=== PATIENT | male | born 1940 | race Caucasian/White ===

== ENCOUNTER 2021-09-27 10:21 | Emergency (ER) | payer OTHER ==
--- OUTSIDE RECORDS SUMMARY | 2021-09-27 10:24 | XMS REPORT | Continuity of Care Document ---
:[address] [facility] t Address [address] [place] [place] [address] Care Team Providers Name Role Phone Arturo Leyva Attending Clinician Unavailable Yuly Leyva Admitting Clinician Unavailable Payers Payer Name Policy Type Policy Number Effective Date Expiration Date S ource Problems This patient has no known problems. Allergies, Adverse Reactions, Alerts Allergy Allergy Status Severity Reaction(s) Onset Inactive Treating Comm ents Source Name Type Date Date Clinician No Known DA Active U [facility] Allergie 09-30 [facility] 00:00: [address] Medications This patient has no known medications. Procedures This patient has no known procedures. Encounters Start End Encounter Admission Attending Care Care Encounter Source Date/Time Date/Time Type Type Clinicians Facility Department ID 2021-06-20 Inpatient [facility] NICKO [id number] [facility] 17:52:00 [facility]5 [facility] 2021-06-21 2021-07-12 [facility] EM Aut[facility] [id number] [facility] 03:01:00 18:41:00 Arturo 88 [facility] 2021-06-21 2021-07-12 Inpatient EM Autumn [facility] [id number] [facility] 03:01:00 18:41:00 Arturo [facility]6 [facility] Results Test Description Test Time Test Comments Results Result Comments Source COVID 19 Asymptomatic [facility] 2021-07-12 15:39:00 Test Item Value Reference Range Interpretation Comme nts COVID 19 Asymptomatic IH AG NEGATIVE Negative "Negative results from patients (test code = COVNONPUIAG) wi th symptom onset beyondfive days, should be lul bettie as presumptive, andconfirmation with a molecular assay, if neces phani forpatient management may be performed. Negative result s do notrule out COVID-19 and sh ould not be used as the sole basisf or treatment or patient managem ent decisions, includinginfect ion control decisions. Nega tive results should beconsidered in the context of a patients recent exposures,history, and the presenc e of clinical signs and symptomscon sistent with COVID-19.This t est detects both viable andnon-v iable SARS-CoV and SARS CoV-2.Test performance dependson the a mount of virus (antigen) in th e sample." COVID 19 Asymptomatic IH [id number] 18:46:00 Test Item Value Reference Range Interpretation Comments COVID 19 NEGATIVE Negative "Negative resul ts from Asymptomatic IH AG patients with symptom (test code = onset beyondfiv e days, COVNONPUIAG) should be lul bettie as presumptive, andconfirmation with a molecular assay , if necessary forpa tient management may be performed. Nega tive results do notr ule out COVID-19 and sh ould not be used as the sole basisfor treatm ent or patient managem ent decisions, includinginfect ion control decisio ns. Negative result s should beconsidered in the context of a pa tients recent exposure s,history, and the presenc e of clinical signs and symptomsconsist ent with COVID-19.This t est detects both vi able andnon-viable S ARS-CoV and SARS CoV-2. Test performance dep endson the amount of virus (antigen) in the sample." *SPECIMEN SWAB NOT ACCEPTABLE, SPOKE TO ANGEL BOWERS*BASIC METABOLIC [id number] 06:17:00 Test Item Value Reference Range Interpretation Comments SODIUM (test code = 136 MMOL/L 137-145 L NA) POTASSIUM (test code = 3.9 MMOL/L 3.5-5.1 N K) CHLORIDE (test code = 102 MMOL/L 98-107 N CL) CARBON DIOXIDE (test 26 MMOL/L 22-30 N code = CO2) ANION GAP (test code = 12 MMOL/L 14-24 L GAP) GLUCOSE (test code = 130 MG/DL 74-106 H GLU) BLOOD UREA NITROGEN 26 MG/DL 9-20 H (test code = BUN) GLOMERULAR FILTRATION > 60 Report ing units: RATE (test code = GFR) ml/mi n/1.73 m2 (Modified MDRD Formula)Referen ce Range: > or = 6 0 ml/min/1.73 m2 CREATININE (test code 0.70 MG/DL 0.66-1.25 N = CREAT) CALCIUM (test code = 8.2 MG/DL 8.4-10.2 L CA) CBC W/AUTO [id number] 06:14:00 Test Item Value Reference Range Interpretation Comments WHITE BLOOD CELL (test code = 10.1 K/MM3 3.8-9.8 H WBC) RED BLOOD CELL (test code = 4.48 M/MM3 3.95-5.67 N RBC) HEMOGLOBIN (test code = HGB) 10.7 G/DL 12.4-16.7 L HEMATOCRIT (test code = HCT) 35.9 % 35.9-49.5 N MEAN CELL VOLUME (test code = 80 fL 81.7-96.1 L MCV) MEAN CELL HGB (test code = MCH) 23.9 pg 27.6-33.2 L MEAN CELL HGB CONCETRATION 29.8 % 32.9-35.5 L (test code = MCHC) RED CELL DISTRIBUTION WIDTH 15.3 % 12.1-15.2 H (test code = RDW) PLATELET COUNT (test code = 329 K/MM3 129-368 N PLT) MEAN PLATELET VOLUME (test code 11.7 fl 7.4-10.4 H = MPV) NEUTROPHIL % (test code = NT%) 71.2 % 43-75 N IMMATURE GRANULOCYTE % (test 0.3 % 0.0-2.0 N code = IG%) LYMPHOCYTE % (test code = LY%) 16.0 % 14-44 N MONOCYTE % (test code = MO%) 6.0 % 4-13 N EOSINOPHIL % (test code = EO%) 5.1 % 0-6 N BASOPHIL % (test code = BA%) 1.4 % 0-2 N NUCLEATED RBC % (test code = 0.0 % 0-1.0 N NRBC%) NEUTROPHIL # (test code = NT#) 7.20 K/mm3 2.0-7.6 N IMMATURE GRANULOCYTE # (test 0.03 x10 3/uL 0-0.03 N code = IG#) LYMPHOCYTE # (test code = LY#) 1.62 K/mm3 1.0-3.8 N MONOCYTE # (test code = MO#) 0.61 K/mm3 0.1-0.8 N EOSINOPHIL # (test code = EO#) 0.52 K/mm3 0.0-0.2 H BASOPHIL # (test code = BA#) 0.14 K/mm3 0.0-0.2 N NUCLEATED RBC # (test code = 0.00 K/mm3 0.0-0.1 N NRBC#) BASIC METABOLIC [id number] 08:19:00 Test Item Value Reference Range Interpretation Comments SODIUM (test code = 144 MMOL/L 137-145 N NA) POTASSIUM (test code = 3.6 MMOL/L 3.5-5.1 N K) CHLORIDE (test code = 108 MMOL/L 98-107 H CL) CARBON DIOXIDE (test 27 MMOL/L 22-30 N code = CO2) GLUCOSE (test code = 142 MG/DL 74-106 H GLU) BLOOD UREA NITROGEN 34 MG/DL 9-20 H (test code = BUN) GLOMERULAR FILTRATION > 60 Report ing units: RATE (test code = GFR) ml/mi n/1.73 m2 (Modified MDRD Formula)Referen ce Range: > or = 6 0 ml/min/1.73 m2 CREATININE (test code 0.70 MG/DL 0.66-1.25 N = CREAT) CALCIUM (test code = 8.5 MG/DL 8.4-10.2 N CA) PATIENT REFUSE THE BLOOD DRAW. NOTIFIED PATIENT CARE STAFF:DENA FENTON ON 06/26/21 AT 0618 BY [id number] [id number] (CORONARY RISK)2021-06-26 08:19:00 Test Item Value Reference Range Interpretation Comments TRIGLYCERIDES (test 101 MG/DL 150-199 L TRIGLYCE RIDES code = TRIG) REFERENCE RANGE:Normal: < 150 mg/dLBorderline High: 150-199 mg/dLHi gh: 200-499 mg/dLVe ry High: >=500 mg/ dL CHOLESTEROL (test code 94 MG/DL <200 = CHOL) HDL CHOLESTEROL (test 37 MG/DL 40-59 L code = HDL) LIPOPROTEIN LDL (test 31 MG/DL 0-99 N code = LDL) OPTIMAL........ .<100 mg/dLNEAR OPTIMAL/ABOVE OPTIMAL........ .100-12 9 mg/dL BORDERLINE HIGH.........13 0-159 mg/dL HIGH.........16 0-189 mg/dL VERY HIGH...... ...>/= 190 mg/dL PATIENT REFUSE THE BLOOD DRAW. NOTIFIED PATIENT CARE STAFF:DENA FENTON ON 06/26/21 AT 0618 BY [id number] W/AUTO [id number] 07:54:00 Test Item Value Reference Range Interpretation Comments WHITE BLOOD CELL (test code = 10.2 K/MM3 3.8-9.8 H WBC) RED BLOOD CELL (test code = 4.55 M/MM3 3.95-5.67 N RBC) HEMOGLOBIN (test code = HGB) 11.2 G/DL 12.4-16.7 L HEMATOCRIT (test code = HCT) 36.7 % 35.9-49.5 N MEAN CELL VOLUME (test code = 81 fL 81.7-96.1 L MCV) MEAN CELL HGB (test code = MCH) 24.6 pg 27.6-33.2 L MEAN CELL HGB CONCETRATION 30.5 % 32.9-35.5 L (test code = MCHC) RED CELL DISTRIBUTION WIDTH 15.5 % 12.1-15.2 H (test code = RDW) PLATELET COUNT (test code = 437 K/MM3 129-368 H PLT) MEAN PLATELET VOLUME (test code 10.4 fl 7.4-10.4 N = MPV) NEUTROPHIL % (test code = NT%) 70.7 % 43-75 N IMMATURE GRANULOCYTE % (test 0.3 % 0.0-2.0 N code = IG%) LYMPHOCYTE % (test code = LY%) 19.4 % 14-44 N MONOCYTE % (test code = MO%) 5.5 % 4-13 N EOSINOPHIL % (test code = EO%) 2.9 % 0-6 N BASOPHIL % (test code = BA%) 1.2 % 0-2 N NUCLEATED RBC % (test code = 0.0 % 0-1.0 N NRBC%) NEUTROPHIL # (test code = NT#) 7.20 K/mm3 2.0-7.6 N IMMATURE GRANULOCYTE # (test 0.03 x10 3/uL 0-0.03 N code = IG#) LYMPHOCYTE # (test code = LY#) 1.97 K/mm3 1.0-3.8 N MONOCYTE # (test code = MO#) 0.56 K/mm3 0.1-0.8 N EOSINOPHIL # (test code = EO#) 0.30 K/mm3 0.0-0.2 H BASOPHIL # (test code = BA#) 0.12 K/mm3 0.0-0.2 N NUCLEATED RBC # (test code = 0.00 K/mm3 0.0-0.1 N NRBC#) PATIENT REFUSE THE BLOOD DRAW. NOTIFIED PATIENT CARE STAFF:DENA FENTON ON 06/26/21 AT 0618 BY [id number] 01:35:00 Test Item Value Reference Range Interpretation Comments UA COLOR (test code = YELLOW YELLOW COLU) UA APPEARANCE (test code CLEAR CLEAR = APPU) UA GLUCOSE DIPSTICK (test NORMAL MG/DL NORMAL code = DGLUU) UA BILIRUBIN DIPSTICK NEGATIVE MG/DL NEGATIVE (test code = BILU) UA KETONE DIPSTICK (test NEGATIVE MG/DL NEGATIVE code = KETU) UA SPECIFIC GRAVITY (test 1.020 1.003-1.030 N code = SGU) UA BLOOD DIPSTICK (test NEGATIVE Mathew/mm3 NEGATIVE code = DOLLY) UA PH DIPSTICK (test code 6.0 5.0-9.0 N = SANDRA) UA PROTEIN DIPSTICK (test 30 MG/DL NEGATIVE A code = PROU) UA UROBILINIOGEN DIPSTICK 1 MG/DL NORMAL A (test code = URO) UA NITRITE DIPSTICK (test NEGATIVE NEGATIVE code = TASNEEM) UA LEUKOCYTE ESTERASE NEGATIVE /mm3 NEGATIVE DIPSTICK (test code = LEUU) UA CULTURE NEEDED? (test NO, WBC<10 Criteria Culture Chk code = UACULT) SOURCE OF URINE: CLEAN CATCHUA [id number] 01:35:00 Test Item Value Reference Range Interpretation Comments UA RBC (test code = RBCU) 0-3 RBC/HPF 0-3 UA WBC (test code = XWBCU) 0-3 WBC/HPF 0-5 UA EPITHELIAL CELLS (test code RARE EPI/HPF FEW = EPIU) UA BACTERIA (test code = RARE NONE XBACU) UA URIC ACID CRYSTALS (test MODERATE #/HPF NONE A code = URIU) UA MUCUS (test code = MUCU) SLIGHT #/LPF NONE SOURCE OF URINE: CLEAN CATCHGLUCOSE BEDSIDE [id number] 07:29:00 Test Item Value Reference Range Interpretation Comments GLUCOSE BEDSIDE TESTING (test code 135 MG/DL 60-99 H = GLUBED) BASIC METABOLIC [id number] 06:16:00 Test Item Value Reference Range Interpretation Comments SODIUM (test code = 146 MMOL/L 137-145 H NA) POTASSIUM (test code = 3.5 MMOL/L 3.5-5.1 N K) CHLORIDE (test code = 109 MMOL/L 98-107 H CL) CARBON DIOXIDE (test 28 MMOL/L 22-30 N code = CO2) ANION GAP (test code = 13 MMOL/L 14-24 L GAP) GLUCOSE (test code = 138 MG/DL 74-106 H GLU) BLOOD UREA NITROGEN 37 MG/DL 9-20 H (test code = BUN) GLOMERULAR FILTRATION > 60 Report ing units: RATE (test code = GFR) ml/mi n/1.73 m2 (Modified MDRD Formula)Referen ce Range: > or = 6 0 ml/min/1.73 m2 CREATININE (test code 0.90 MG/DL 0.66-1.25 N = CREAT) CALCIUM (test code = 9.2 MG/DL 8.4-10.2 N CA) CBC W/AUTO [id number] 05:57:00 Test Item Value Reference Range Interpretation Comments WHITE BLOOD CELL (test code = 8.8 K/MM3 3.8-9.8 N WBC) RED BLOOD CELL (test code = 4.68 M/MM3 3.95-5.67 N RBC) HEMOGLOBIN (test code = HGB) 11.4 G/DL 12.4-16.7 L HEMATOCRIT (test code = HCT) 37.7 % 35.9-49.5 N MEAN CELL VOLUME (test code = 81 fL 81.7-96.1 L MCV) MEAN CELL HGB (test code = MCH) 24.4 pg 27.6-33.2 L MEAN CELL HGB CONCETRATION 30.2 % 32.9-35.5 L (test code = MCHC) RED CELL DISTRIBUTION WIDTH 15.4 % 12.1-15.2 H (test code = RDW) PLATELET COUNT (test code = 491 K/MM3 129-368 H PLT) MEAN PLATELET VOLUME (test code 9.9 fl 7.4-10.4 N = MPV) NEUTROPHIL % (test code = NT%) 75.5 % 43-75 H IMMATURE GRANULOCYTE % (test 0.2 % 0.0-2.0 N code = IG%) LYMPHOCYTE % (test code = LY%) 14.6 % 14-44 N MONOCYTE % (test code = MO%) 6.7 % 4-13 N EOSINOPHIL % (test code = EO%) 1.7 % 0-6 N BASOPHIL % (test code = BA%) 1.3 % 0-2 N NUCLEATED RBC % (test code = 0.0 % 0-1.0 N NRBC%) NEUTROPHIL # (test code = NT#) 6.62 K/mm3 2.0-7.6 N IMMATURE GRANULOCYTE # (test 0.02 x10 3/uL 0-0.03 N code = IG#) LYMPHOCYTE # (test code = LY#) 1.28 K/mm3 1.0-3.8 N MONOCYTE # (test code = MO#) 0.59 K/mm3 0.1-0.8 N EOSINOPHIL # (test code = EO#) 0.15 K/mm3 0.0-0.2 N BASOPHIL # (test code = BA#) 0.11 K/mm3 0.0-0.2 N NUCLEATED RBC # (test code = 0.00 K/mm3 0.0-0.1 N NRBC#) - CT CHEST W/O [id number] 20:19:00 [facility] 1940 Sex: M Patient Name: CORNIA SALEH Unit No: [id number] EXAMS: CPT CODE: [id number] CT CHEST W/O CONTRAST 29701 Location of dictation: H14 CT OF CHEST WITHOUT CONTRAST CLINICAL INDICATION: Suspicious left lung mass Comments: Volumetric data acquisition through the chest without intravenous contrast reconstructed as contiguous axial volume, and multiplanar coronal and sagittal reconstructions per department protocol. Reconstructions - coronal and sagittal planes Automated exposure reduction (Auto mA/Smart mA)was utilized in compliance with ACR Image Wisely with DLP of 396 mGy-cm. COMPARISON: CT of the abdomen earlier the same day FINDINGS: Lungs and pleura: A round noncalcified mass is seen in the left lower lobe measuring 2.5 cm with slightly spiculated margins. A somewhat tubular opacity in the medial aspect of the superior segment of the left lower lobe is seen measuring 1.8 x 1.4 cm. There is also a 10 mm irregular noncalcified nodule is seen in the left lung base. There is a granuloma in the right upper lobe. No consolidation, pneumothorax or effusion seen. No endobronchial obstruction seen Mediastinum and neck: Slightly prominent pretracheal nodes measuring up to 12 mm short axis. No mediastinal or hilar mass. The thyroid appears normal. Heart and great vessels: The heart is enlarged with trace pericardial effusion. A pacemaker is in place. There are atherosclerotic changes including heavy coronary calcifications. CHEST WALL: Intact. Upper abdomen: Hypodense area in the mid body the spleen again noted. High density in the gallbladder may be due to vicarious excretion of contrast. Cortical thinning with contrast in nonobstructed collecting systems. Bones and soft tissues: No acute findings. IMPRESSION: 1. Comparison made to CT of the abdomen earlier the same day. 2. This confirms a spiculated round nodule in the left lower lobe concerning for neoplasm. Additional opacities in the medial aspect of the superior segment of the left lower lobe and a small irregular nodule in the left lung base. 3. Abnormal mediastinalnodes [facility] NAME: CORINA SALEH [id number] [facility] mond PHYS: Esteban [place]eno [place], [place] [address]XKM: 1940 AGE: 81 SEX: M LOC:Z.623 A PHONE #: [phone] EXAM DATE: 06/21/2021 STATUS: ADM IN FAX #: [phone] RAD #: [id number] D/C DT PAGE 1 SignedReport (CONTINUED) Patient Name: CORINA SALEH Unit No: [id number] EXAMS: CPT CODE: [id number] CT CHEST W/O CONTRAST 53821 <Continued> Electronically Signedby Wilma Fisher M.D. on 06/21/2021 at 2019 Reported and signed by: Wilma Lemus CC: Techno logist: Richard Castaneda, RT(R); Jenni CTDI: DLP: Trnscrpt: 06/21/2021 (2018) [facility] NAME: CORINA SALEH[address] PHYS: [place] [address] : 1940 AGE: 81 SEX: M LOC: Z.173 A PHONE #: [phone] EXAM DATE: 06/21/2021 STATUS: ADM IN FAX #: [phone] RAD #: [id number] D/C DT PAGE 2 Signed Report Patient Name: CORINA SALEH Unit No: [id number] EXAMS: CPT CODE: [id number] CT CHEST W/O CONTRAST 37323 <Continued> Orig Print D/T: S: 06/21/2021 (2021) [facility] NAME: CORINA SALEH[address] PHYS: [place] [address] : 1940 AGE: 81 SEX: M LOC: Z.176 A PHONE #: [phone] EXAM DATE: 06/21/2021 STATUS: ADM IN FAX #: [phone] #: [id number] D/C DT PAGE 3 Signed Report- CT ABD PELVIS [id number] 02:47:00 [facility] : 1940 Sex: M Patient Name: CORINA SALEH Unit No: [id number] EXAMS: CPT CODE: [id number] CT ABD PELVIS W/CONT 37475 Examination: CT scan abdomen and pelvis with contrast. Location code: H 60. TECHNIQUE: Multiple axial images of the abdomen and pelvis were obtained after intravenous administration of contrast with sagittal and coronal reconstructions. CT examination was performed using automated dose reduction. Discussion: Clinical history significant for the presence of pus Liver, spleen, adrenal glands, pancreas and kidneys are grossly unremarkable. In the spleen there is a central area of hypodensity identified which measures 1.6 cm and likely represents a splenic cyst. No enlarged retroperitoneal, pelvic or inguinal adenopathy is noted. The bladder is moderately distended and grossly unremarkable. No other abnormal masses or fluid collections are identified within the abdomen and/or pelvis. Fecal debris is identified in the rectum consistent with mild fecal impaction. Images through the lung bases reveals a spiculated mass in the left lower lobe which measures 2.4 cm. This finding is suspicious for malignancy. Correlation withCT scan the chest is recommended. IMPRESSION: 1. Small splenic cyst. 2. Mild fecal impaction. 3. Reticulated mass identified in the left lower lobe measuring 2.[address] scan of chest is recommended for complete evaluation. at 0247 Reported and signed by: Arie Vicente MD CC: Giselle Matos MD Technologist: Júnior Hightower, RT(R)(CT) CTDI: DLP: Trnscrpt: 06/21/2021 (0247) [email or web address] [facility] NAME: CORINA SALEH [id number] [address] PHYS: [place] [address] : 1940 AGE: 81 SEX: M LOC: GRACE PHONE #: [phone] EXAM DATE: 06/21/2021 STATUS: REG ERFAX #: [phone] RAD #: [id number] D/C DT PAGE 1 Signed Report Patient Name: CORINA SALEH Unit No: [id number] EXAMS: CPT CODE: [id number] ABD PELVIS W/CONT 38014 <Continued> Orig Print D/T: S: 06/21/2021 (0250) DIEGO Lin NAME: CORINA SALEH [id number] [address] PHYS: [place] [address] : 1940 AGE: 81 SEX: M LOC: GRACE PHONE #: [phone] EXAM DATE: 06/21/2021 STATUS: REG ER FAX #: [phone] RAD#: [id number] D/C DT PAGE 2 Signed Report BASIC METABOLIC [id number] 22:54:00 Test Item Value Reference Range Interpretation Comments SODIUM (test code = 141 MMOL/L 137-145 N NA) POTASSIUM (test code = 3.8 MMOL/L 3.5-5.1 N K) CHLORIDE (test code = 107 MMOL/L 98-107 N CL) CARBON DIOXIDE (test 24 MMOL/L 22-30 N code = CO2) GLUCOSE (test code = 93 MG/DL 74-106 N GLU) BLOOD UREA NITROGEN 25 MG/DL 9-20 H (test code = BUN) GLOMERULAR FILTRATION > 60 Report ing units: RATE (test code = GFR) ml/mi n/1.73 m2 (Modified MDRD Formula)Referen ce Range: > or = 6 0 ml/min/1.73 m2 CREATININE (test code 0.90 MG/DL 0.66-1.25 N = CREAT) CALCIUM (test code = 8.7 MG/DL 8.4-10.2 N CA) HEPATIC FUNCTION [id number] 22:54:00 Test Item Value Reference Range Interpretation Comments TOTAL PROTEIN 7.8 G/DL 6.2-7.6 H [facility] Clinical Diagnostic (test code = has made us elizabeth re of PROT) newinformation regarding the potential i nterference ofEltrombopag (a bone marrow stimulan t used to treatthrombocyt onmenia and aplastic anemia ) with specific assays on the Vitros 5600 of which Total Protein is one of thoseassays per formed in our lab.Interfe rence testing perform ed at Ortho determined that Eltrombopag does interfere with Vitros Total Protein asfollowsEltrom bopag Interference fo r Vitros Product Total Protein:======= Eltrombopag Max Observed A vg. BiasConcentrati on Concentration Concentration== ==== 2.5 mg/dl 6.0 g/dl +0.41 +0.34 3.5 mg/dl 6.0 g/dl +0.50 +0.45 5 mg/dl 6.0 g/dl +0.73 +0.65 2.5 mg/dl 8.0 g/dl +0.44 +0.41 3.5 mg/dl 8.0 g/dl +0.55 +0.52 5 mg/dl 8.0 g/dl +0.86 +0.77 ALBUMIN (test 3.8 G/DL 3.5-5.0 N code = ALB) BILIRUBIN TOTAL 1.0 MG/DL 0.2-1.3 N Eltrombopag Interference (test code = for Vitros Prod uct TBil, BILT) BuBc: Assa y Eltrombopag Analyte/ Max Observed Avg. Bias Concentrati on Concentration Concentration== ====TBil 7mg/dl T Manny/ 1.2mg/dl +0.23 mg.dl +0.20mg/dlBuBc 3.5mg/dl Bu/0.8mg/dl +0.25mg/dl +0 .24mg/dlBuBc 7 mg/dl Bu/14.2mg/dl +0.38mg/dl +0.25mg/dlBuBc 5mg/dl Bc/0mg/dl +0.25mg/dl +0 .15mg/dlBuBc 3.5mg/dl Bc/2.8mg/dl +0.25mg/dl +0.23mg/dl BILIRUBIN DIRECT 0.0 MG/DL 0.0-0.3 N Eltrombopag Interference (test code = for Vitros Prod uct TBil, BILD) BuBc: Assa y Eltrombopag Analyte/ Max Observed Avg. Bias Concentrati on Concentration Concentration== ====TBil 7mg/dl T Manny/ 1.2mg/dl +0.23 mg.dl +0.20mg/dlBuBc 3.5mg/dl Bu/0.8mg/dl +0.25mg/dl +0 .24mg/dlBuBc 7 mg/dl Bu/14.2mg/dl +0.38mg/dl +0.25mg/dlBuBc 5mg/dl Bc/0mg/dl +0.25mg/dl +0 .15mg/dlBuBc 3.5mg/dl Bc/2.8mg/dl +0.25mg/dl +0.23mg/dl SGOT/AST (test 25 UNITS/L 17-59 N code = AST) SGPT/ALT (test 15 UNITS/L 0-49 N code = ALT) ALKALINE 89 UNITS/L 38-126 N PHOSPHATASE (test code = ALKP) [id number] 22:54:00 Test Item Value Reference Range Interpretation Comments TROPONIN-I (test code = TROPI) 0.015 NG/ML 0.012-0.033 N CBC W/AUTO [id number] 22:20:00 Test Item Value Reference Range Interpretation Comments WHITE BLOOD CELL (test code = 10.6 K/MM3 3.8-9.8 H WBC) RED BLOOD CELL (test code = 4.23 M/MM3 3.95-5.67 N RBC) HEMOGLOBIN (test code = HGB) 10.4 G/DL 12.4-16.7 L HEMATOCRIT (test code = HCT) 34.0 % 35.9-49.5 L MEAN CELL VOLUME (test code = 80 fL 81.7-96.1 L MCV) MEAN CELL HGB (test code = MCH) 24.6 pg 27.6-33.2 L MEAN CELL HGB CONCETRATION 30.6 % 32.9-35.5 L (test code = MCHC) RED CELL DISTRIBUTION WIDTH 14.9 % 12.1-15.2 N (test code = RDW) PLATELET COUNT (test code = 470 K/MM3 129-368 H PLT) MEAN PLATELET VOLUME (test code 10.2 fl 7.4-10.4 N = MPV) NEUTROPHIL % (test code = NT%) 76.3 % 43-75 H IMMATURE GRANULOCYTE % (test 0.4 % 0.0-2.0 N code = IG%) LYMPHOCYTE % (test code = LY%) 14.3 % 14-44 N MONOCYTE % (test code = MO%) 6.6 % 4-13 N EOSINOPHIL % (test code = EO%) 1.0 % 0-6 N BASOPHIL % (test code = BA%) 1.4 % 0-2 N NUCLEATED RBC % (test code = 0.0 % 0-1.0 N NRBC%) NEUTROPHIL # (test code = NT#) 8.04 K/mm3 2.0-7.6 H IMMATURE GRANULOCYTE # (test 0.04 x10 3/uL 0-0.03 H code = IG#) LYMPHOCYTE # (test code = LY#) 1.51 K/mm3 1.0-3.8 N MONOCYTE # (test code = MO#) 0.70 K/mm3 0.1-0.8 N EOSINOPHIL # (test code = EO#) 0.11 K/mm3 0.0-0.2 N BASOPHIL # (test code = BA#) 0.15 K/mm3 0.0-0.2 N NUCLEATED RBC # (test code = 0.00 K/mm3 0.0-0.1 N NRBC#) - XR CHEST [id number] 19:12:00 [facility] : 1940 Sex: M Patient Name: CORINA SALEH Unit No: [id number] EXAMS: CPT CODE: [id number] XR CHEST 1V 20042 B2 EXAM: - XR CHEST 1V HISTORY: Altered Mental Status COMPARISON: 10/04/2012 FINDINGS: Cardiac pacemaker again noted. Patchy retrocardiac airspace opacities. No pleural effusion or pneumothorax. The cardiac silhouette is within normal limits. No acute osseous abnormalities. IMPRESSION: Retrocardiac atelectasis, pulmonary edema and/or pneumonia. at 1912 Reported and signed by: Arun Liriano MD CC: Giselle Matos MD Technologist: Kirsty Conner RT(R) Transcrpt Date/Tm/Trnsp: 06/20/2021 (1911) Lex.[email or web address] Orig Print D/T: S: 06/20/2021 (1914) [facility] NAME: CORINA SALEH [address] PHYS: [place] [address] : 1940 AGE: 81 SEX:M LOC: [facility] PHONE #: [phone] EXAM DATE: 06/20/2021 STATUS: REG ER FAX #: [phone] RADIOLOGY NO: [id number] PAGE 1 Signed Report- CT HEAD/BRAIN W/O [id number] 19:02:00 [facility] : 1940 Sex: M Patient Name: CORINA SALEH Unit No: [id number] EXAMS: CPT CODE: [id number] CT HEAD/BRAIN W/O CONT [id number] B2 EXAM: CT HEAD WITHOUT CONTRAST DATE:16:13 PM HISTORY: Altered Mental Status TECHNIQUE: Axial CT images from the skull base to the vertex without intravenous contrast. Coronal and sagittal reformatted images were created from the data set. One or more of the following dose reduction techniques were used: Automated exposure control, adjustment of the mA and/or kV accordingto patient size, and/or iterative reconstruction. COMPARISON: None FINDINGS: There is a large area of hypodensity involving the right insula and right frontal lobe secondary to subacute ischemic changes. There is no significant mass effect. There is no acute hemorrhage. Remote infarct in the left occipital and parietal lobes. Volume loss. No midline shift or brain herniation. Mucosal disease within the right maxillary sinus. No acute bony lesions. Calcification of the carotid siphons and vertebral arteries. 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 Findings were reported to Dr. Emanuel at the time of interpretation. at 1902 Reported and signed by: Tayler Blair MD CC: Giselle Matos MD Technologist: Richard dinh, RT(R); [facility] CTDI: DLP: Trnscrpt: 06/20/2021 (1901) [facility] NAME: CORINA SALEH PHYS: [place] [address] :1940 AGE: 81 SEX: M LOC: Z.ERS PHONE #: [phone] EXAM DATE: 06/20/2021 STATUS: REG ER FAX #: [phone] RAD #: [id number] D/C DT PAGE 1 Signed Report Patient Name: CORINA SALEH Unit No: [id number] EXAMS: CPT CODE: [id number] CT HEAD/BRAIN W/O CONT [id number] <Continued> Orig Print D/T: S: 06/20/2021 (1904) [facility] NAME: CORINA SALEH PHYS: [place] [address] : 1940 AGE: 81 SEX: M LOC: Z.ERS PHONE #: [phone] EXAM DATE: 06/20/2021 STATUS: REG ER FAX #: [phone] RAD #: [id number] D/C DT PAGE 2 Signed Report
[2021-09-27] MEDS ORDERED: ONDANSETRON 4 MG/2 ML VIAL ONE (10:47)
[2021-09-27] MEDS ORDERED: NA CHLORIDE 0.9% 1,000 ML ONE (10:47)
[2021-09-27 10:50] LABS: Absolute Lymphocytes (CBC) 0.8 K/uL (0.7-4.9); Lymphocytes % 8.2 % (15.3-44.8); MPV 8.7 fL (7.6-11.3)
[2021-09-27 11:11] LABS: ALT/SGPT 22 U/L (12-78); AST/SGOT 18 U/L (15-37); Albumin 2.7 g/dL (3.4-5.0); Alkaline Phosphatase 124 U/L (45-117); BUN Blood Urea Nitrogen 27 mg/dL (7-18); Bicarbonate 26 mmol/L (21-32); Bilirubin Direct 0.2 mg/dL (0-0.2); Bilirubin Total 0.7 mg/dL (0.2-1.0); Glucose Level 124 mg/dL (74-106); Lipase 117 U/L (73-393); NT PRO-BNP 947 pg/mL (<450); Potassium 3.9 mmol/L (3.5-5.1); Protein, Total 7.6 g/dL (6.4-8.2); Sodium Level 136 mmol/L (136-145)
--- NOTE | 2021-09-27 11:14 | RAD REPORT ---
EXAM DESCRIPTION: RAD - Chest Single View - 09/27/2021 10:49 am CLINICAL HISTORY: vomiting, eval for aspiration COMPARISON: No comparisons FINDINGS: Lines: Pacemaker. Lungs: No evidence of edema or pneumonia. Pleural: No significant pleural effusions or pneumothorax. Cardiac: Cardiomegaly. Bones: No acute fractures. Other: IMPRESSION: No acute cardiopulmonary disease.
--- NOTE | 2021-09-27 11:40 | RAD REPORT ---
EXAM DESCRIPTION: CT - Head Brain Wo Cont - 09/27/2021 11:28 am CLINICAL HISTORY: syncope, vomiting, previous CVA COMPARISON: No comparisons TECHNIQUE: All CT scans are performed using dose optimization technique as appropriate and may inclu de automated exposure control or mA/KV adjustment according to patient size. FINDINGS: Remote appearing moderate left occipital temporal infarct. Subacute versus chronic moderat e sized right frontal lobe infarct.No acute intracranial hemorrhage. No mass effect or midline shift. Mucous retention cyst in the right maxillary sinus. The calvarium is intact. IMPRESSION: Subacute versus chronic moderate sized right frontal lobe infarct. MRI with and without contrast could better establish acuity. Remote left parietoccipital infarct. No acute intracranial he morrhage or skull fracture .
--- NOTE | 2021-09-27 11:44 | RAD REPORT ---
EXAM DESCRIPTION: CTAbdomen Pelvis W Contrast - 09/27/2021 11:29 am CLINICAL HISTORY: NAUSEA / VOMITING COMPARISON: No comparisons TECHNIQUE: CT of the abdomen and pelvis was performed. All CT scans are performed using dose optimization technique as appropriate and may include automated exposure control or mA/KV adjustment according to patient size. FINDINGS: Lower chest: Dependent atelectasis with trace effusions. Cardiomegaly. Pacemaker. Coronary artery stents. Liver: No acute abnormality or suspicious lesions. Biliary: Cholelithiasis. Stomach: Gastrostomy tube. Duodenum: No significant focal abnormality. Pancreas: No significant abnormality. Spleen: Presumed prior splenic infarct or remote trauma. Adrenal: No suspicious lesions. Kidney/ureter: No hydronephrosis. No renal calculi. Retroperitoneum: No retroperitoneal adenopathy. Vascular: Atherosclerosis. Bowel: Diverticulosis. No evidence of acute diverticulitis.. Moderate stool in the rectum. Peritoneum: No ascites or free air. Fat containing left inguinal hernia. Bladder: Grossly unremarkable. Reproductive: No adnexal masses. Mild prostatomegaly. Bones: No acute fracture. Multilevel degenerative changes are present in the spine. Other: n/a IMPRESSION: No acute intra-abdominal or pelvic finding. A few incidental findings as noted above.
[2021-09-27 12:31] LABS: SARS-COV-2 RT PCR POSITIVE (NEGATIVE)
--- NOTE | 2021-09-27 13:22 | EDPHYS ---
Physician Documentation [facility] Name: Aram Calle Age: 81 yrs Sex: Male : 1940 Arrival Date: 09/27/2021 Time: 10:22 Bed 18 Private MD: ED Physician Liam Guillermo HPI: 09/27 10:36 This 81 yrs old Male presents to ER via Unassigned with complaints of Syncope. rn 10:36 The patient has experienced syncope, became unresponsive. Onset: The symptoms/episode rn began/occurred just prior to arrival. Duration: This was a single episode. Associated injury: The patient did not suffer any apparent associated injury. Associated signs and symptoms: Pertinent positives: nausea, vomiting, Pertinent negatives: seizure. Current symptoms: Vomiting. It is unknown whether or not the patient has had similar symptoms in the past. EMS reports patient was at ENT clinic, had syncopal episode while seated, noted to have some nausea and vomiting, 2 episodes since then. Patient with a history of CVA, is aphasic and has dysphagia. Has feeding tube. Stable vital signs per EMS. Patient unable to give us any details.. - Immunization history:: Adult Immunizations unknown, unkown. - Family history:: not pertinent. - Social history:: Smoking status: unknown. - Hospitalizations: : No recent hospitalization is reported. ROS: 10:36 Unable to obtain ROS due to History of stroke with aphasia. rn Exam: 10:36 Constitutional: This is a well developed, well nourished patient who is awake, alert, rn emesis on shirt and in velazquez Head/Face: Normocephalic, atraumatic. Eyes: Okay periorbital areas with no swelling, redness, or edema. Cardiovascular: Regular rate and rhythm. No pulse deficits. Respiratory: No increased work of breathing, no retractions or nasal flaring. Abdomen/GI: Soft, non-tender, nondistended Skin: Warm, dry, no cyanosis MS/ Extremity: Pulses equal, no cyanosis. Neuro: Awake and alert, aphasic. Baseline weakness left upper extremity and left lower extremity with some movement. Patient able to move right upper and right lower extremity. Vital Signs: 10:17 BP 162 / 94; Pulse 88; Resp 16; Pulse Ox 98% ; cb5 10:22 BP 158 / 77; Pulse 60; Resp 17; Temp 98.4; Pulse Ox 98% ; Weight 81.65 kg; Height 5 ft. cb5 8 in. (172.72 cm); 12:19 BP 134 / 73; Pulse 89; Resp 18; Pulse Ox 98% ; cb5 12:30 BP 128 / 65; Pulse 61; Resp 16; Pulse Ox 100% ; cb5 13:30 BP 134 / 61; Pulse 59; Resp 16; Pulse Ox 100% ; Pain 0/10; cb5 10:22 Body Mass Index 27.37 (81.65 kg, 172.72 cm) cb5 MDM: 10:24 Patient medically screened. rn 13:16 Differential Diagnosis: cardiac arrhythmia, idiopathic syncope, vasovagal episode, rn Viral syndrome, Covid, flu, pneumonia. Data reviewed: vital signs, nurses notes, lab test result(s), EKG, radiologic studies. 13:19 Counseling: I had a detailed discussion with the patient and/or guardian regarding: the rn historical points, exam findings, and any diagnostic results supporting the discharge/admit diagnosis, lab results, radiology results, the need for outpatient follow up, to return to the emergency department if symptoms worsen or persist or if there are any questions or concerns that arise at home. Response to treatment: the patient's symptoms have markedly improved after treatment, and as a result, I will discharge patient. Special discussion: I discussed with the patient/guardian in detail that at this point there is no indication for admission to the hospital. It is understood, however, that if the symptoms persist or worsen the patient needs to return immediately for re-evaluation. ED course: Patient improved since arrival. No longer vomiting. No oxygen requirement. Covid positive. Stable vitals without signs of sepsis. CT head without acute findings. Will discharge back to [facility] as he has help there. No indication for emergent admission at this time. Ct head no acute findings, shows chronic/subacute changes. Family and clinic reported after syncopal episode was back to baseline.. 09/27 10:25 Order name: Basic Metabolic Panel; Complete Time: : rn 09/27 10:25 Order name: CBC with Diff; Complete Time: : rn 09/27 10:25 Order name: Hepatic Function; Complete Time: rn 09/27 10:25 Order name: Lipase; Complete Time: rn 09/27 10:25 Order name: Protime (+inr); Complete Time: 11:49 rn 09/27 10:25 Order name: Ptt, Activated; Complete Time: 11:49 rn 09/27 10:25 Order name: CT Head Brain wo Cont; Complete Time: 12:22 rn 09/27 10:25 Order name: XRAY Chest (1 view); Complete Time: 11:49 rn 09/27 10:25 Order name: CT Abd/Pelvis - IV Contrast Only; Complete Time: 12:22 rn 09/27 10:25 Order name: COVID-19/FLU A+B (Document "Date of Onset" if Symptomatic); Complete Time: rn 12:39 09/27 10:26 Order name: Troponin High Sensitivity; Complete Time: 11:49 rn 09/27 10:26 Order name: BNP; Complete Time: 11:49 rn 09/27 11:30 Order name: Glucose, Ancillary Testing; Complete Time: 11:49 EDMS 09/27 10:25 Order name: EKG; Complete Time: 10:26 rn 09/27 10:25 Order name: Cardiac monitoring; Complete Time: 10:42 rn 09/27 10:25 Order name: EKG - Nurse/Tech; Complete Time: 10:42 rn 09/27 10:25 Order name: IV Saline Lock; Complete Time: 10:42 rn 09/27 10:25 Order name: Labs collected and sent; Complete Time: 10:42 rn 09/27 10:25 Order name: NPO; Complete Time: 10:42 rn 09/27 10:25 Order name: O2 Per Protocol; Complete Time: 10:42 rn 09/27 10:25 Order name: O2 Sat Monitoring; Complete Time: 10:42 rn 09/27 10:25 Order name: Urine Dipstick-Ancillary (obtain specimen) rn Administered Medications: 10:45 Drug: Zofran (Ondansetron) 4 mg Route: IVP; Site: right forearm; cb5 10:45 Drug: NS 0.9% 500 ml Route: IV; Rate: bolus; Site: right forearm; cb5 Disposition Summary: 09/27/21 13:22 Discharge Ordered Location: Home rn Problem: new rn Symptoms: have improved rn Condition: Stable rn Diagnosis - SARS-associated coronavirus as the cause of diseases classified elsewhere rn Followup: rn - With: Private Physician - When: As needed - Reason: Recheck today's complaints, Re-evaluation by your physician Discharge Instructions: - Discharge Summary Sheet rn - COVID-19 rn - Viral Illness, Adult rn Forms: - Medication Reconciliation Form rn - Thank You Letter rn - Antibiotic teacher learning disabled - Prescription Opioid Use rn Prescriptions: - ondansetron HCl 4 mg/5 mL Oral solution - take 5 milliliter by FEEDING TUBE route every 8 hours As needed; 100 rn milliliter; Refills: 0, Product Selection Permitted Signatures: Dispatcher [employer] EDMS Liam Guillermo MD MD rn Boman, Colleen, RN RN cb5 Corrections: (The following items were deleted from the chart) 13:21 13:19 ED course: Patient improved since arrival. No longer vomiting. No oxygen rn requirement. Covid positive. Stable vitals without signs of sepsis. CT head without acute findings. Will discharge back to [facility] as he has help there. No indication for emergent admission at this time. Ct head no acute findings, shows chronic/subacute changes. . rn
--- NOTE | 2021-09-27 13:22 | ER ---
Nurse's Notes [facility] Name: Aram Calle Age: 81 yrs Sex: Male : 1940 Arrival Date: 09/27/2021 Time: 10:22 Bed 18 Private MD: Diagnosis: SARS-associated coronavirus as the cause of diseases classified elsewhere Presentation: 09/27 10:22 Chief complaint: EMS states: syncope episode at ENT office. Coronavirus screen: Client cb5 denies travel out of the [place] in the last 14 days. Ebola Screen: No symptoms or risks identified at this time. Initial Sepsis Screen: Does the patient meet any 2 criteria? Altered Mental Status. Risk Assessment: Do you want to hurt yourself or someone else? Unable to obtain. Onset of symptoms was September 27, 2021. 10:22 Method Of Arrival: EMS: [facility] cb5 10:22 Acuity: ERIC 3 cb5 11:09 Initial Sepsis Screen: Does the patient have a suspected source of infection? Yes: cb5 Productive cough/pneumonia. Triage Assessment: 10:22 General: Appears uncomfortable, Behavior is unresponsive. Pain: Pain Quality of pain is cb5 described as Pain began pt unable to verbalize. Pt frowning Is. EENT:. Neuro: Level of Consciousness is awake, Oriented to person, Turbo Generator Oiler are Speech non-verbal. 11:10 Neuro: Reports pt non-verbal. cb5 - Immunization history:: Adult Immunizations unknown, unkown. - Family history:: not pertinent. - Social history:: Smoking status: unknown. - Hospitalizations: : No recent hospitalization is reported. Screenin:25 Abuse screen: Denies threats or abuse. Denies injuries from another. Nutritional cb5 screening: pt NPO, pt has G-tube. Tuberculosis screening: No symptoms or risk factors identified. Fall Risk Mental Status-. Assessment: 10:25 General: Appears uncomfortable, Behavior is verbally non-responsive. Pain: pt frowning, cb5 unable to verbalize Pain. Neuro: Level of Consciousness is awake, Oriented to patient is non-verbal, history of right CVA. Gait is bedbound. Speech non-verbal. Cardiovascular: Heart tones S1 S2 Capillary refill < 3 seconds Rhythm is regular. Respiratory: Trachea midline Respiratory effort is even, Respiratory pattern is regular, Breath sounds are coarse bilaterally. in left posterior upper lobe and right posterior upper lobe. GI: Abdomen is non-distended, Pt is actively vomiting Enteral feeding tube clamped. Bowel sounds present X 4 quads. : incontient Parent/caregiver report the patient having incontinence. EENT:. Derm: Skin is fragile, is thin, with poor turgor Rash noted that is on face Bruising that is on right arm, left arm, right leg and left leg. Musculoskeletal: Parent/caregiver report the patient having bedbound. 12:19 Reassessment: Patient and/or family updated on plan of care and expected duration. Pain cb5 level reassessed. 13:36 Reassessment: Spoke with Dionisio Stringer at [facility] [phone] gave report. Pt cb5 will be transferred back via EMS. Vital Signs: 10:17 BP 162 / 94; Pulse 88; Resp 16; Pulse Ox 98% ; cb5 10:22 BP 158 / 77; Pulse 60; Resp 17; Temp 98.4; Pulse Ox 98% ; Weight 81.65 kg; Height 5 ft. cb5 8 in. (172.72 cm); 12:19 BP 134 / 73; Pulse 89; Resp 18; Pulse Ox 98% ; cb5 12:30 BP 128 / 65; Pulse 61; Resp 16; Pulse Ox 100% ; cb5 13:30 BP 134 / 61; Pulse 59; Resp 16; Pulse Ox 100% ; Pain 0/10; cb5 10:22 Body Mass Index 27.37 (81.65 kg, 172.72 cm) cb5 ED Course: 10:22 Patient arrived in ED. ss 10:22 Liam Guillermo MD is Attending Physician. ss 10:25 Patient has correct armband on for positive identification. Call light in reach. Side cb5 rails up X 1. 10:25 Arm band placed on right wrist. cb5 10:42 Ana Mcpherson, RN is Primary Nurse. cb5 10:42 BNP Sent. cb5 10:42 Troponin High Sensitivity Sent. cb5 10:42 COVID-19/FLU A+B (Document "Date of Onset" if Symptomatic) Sent. cb5 10:42 CT Head Brain wo Cont Sent. cb5 10:42 Basic Metabolic Panel Sent. cb5 10:42 CBC with Diff Sent. cb5 10:42 Hepatic Function Sent. cb5 10:43 Lipase Sent. cb5 10:43 Protime (+inr) Sent. cb5 10:43 Ptt, Activated Sent. cb5 10:50 XRAY Chest (1 view) In Process Unspecified. EDMS 10:56 Triage completed. cb5 11:29 CT Head Brain wo Cont In Process Unspecified. EDMS 11:31 CT Abd/Pelvis - IV Contrast Only In Process Unspecified. EDMS 14:29 Patient did not have IV access during this emergency room visit. IV discontinued. cb5 14:29 No provider procedures requiring assistance completed. cb5 Administered Medications: 10:45 Drug: Zofran (Ondansetron) 4 mg Route: IVP; Site: right forearm; cb5 10:45 Drug: NS 0.9% 500 ml Route: IV; Rate: bolus; Site: right forearm; cb5 Outcome: 13:22 Discharge ordered by . rn 14:15 Discharged to care home. Report called to dionisio Stringer cb5 14:15 Condition: stable 14:15 Discharge instructions given to EMS. 14:30 Patient left the ED. cb5 Signatures: Dispatcher [employer] EDLiam Rodriguez MD MD rn Smirch, Shelby, RN RN ss Boman, Colleen, RN RN cb5
[2021-09-27 15:04] VITALS: TEMP 98.4
[2021-09-27 15:07] VITALS: O2SAT 100
[2021-09-27 15:08] VITALS: BP 134/61
--- NOTE | 2021-09-28 13:08 | EKG ---
Test Date: 2021-09-27 Test Time: 10:35:42 Medical Records Receptionist: JOSE MEASUREMENT RESULTS: Intervals: Rate: 62 AL: QRSD: 136 QT: 490 QTc: 497 [place]: P: AL: QRS: 48 T: 29 INTERPRETIVE STATEMENTS: Wide QRS rhythm Right bundle branch block Abnormal ECG No previous ECG available for comparison Electronically Signed On 09-28-21 13:03:21 BUILDING CONSTRUCTION PROFESSOR by Malcolm Venegas
== END 2021-09-27 14:30 | disposition home or self-care (01) ==
LOC: ER 10:21
DX: U07.1 COVID-19 (principal)
CPT/HCPCS: 93005; 85025; 80048; 36415; 85610; 82947; 80076; 85730; 84484; 83690; 83880; 0240U; 70450; 74177; 71045; 96374; 99284; Q9967; J7030; J2405